=== PATIENT | female | born 1955 | race Two or more races ===

== ENCOUNTER 2018-03-06 15:42 | Inpatient (IN) | payer OTHER ==
[2018-03-06] MEDS ORDERED: HYZAAR 100-251 EACH (16:03)
[2018-03-06] MEDS ORDERED: TOPROL XL25 MG (16:03)
[2018-03-06] MEDS ORDERED: LIPITOR40 MG (16:03)
[2018-03-06] MEDS ORDERED: OMEGA 3-6-9 CO400 MG (16:04)
[2018-03-06] MEDS ORDERED: CONZIP100 MG (16:04)
[2018-03-07] MEDS ORDERED: RELAFEN PO (07:40)
[2018-03-07] MEDS ORDERED: MULTIVITAMINS1 EAC9 PO (07:41)
[2018-04-11] MEDS ORDERED: COLACE100 MG PO (18:20)
[2018-04-11] MEDS ORDERED: NEURONTIN800 MG PO (18:20)
[2018-04-11] MEDS ORDERED: AMOX-CLAV 875-1 EACH PO (18:21)
[2018-04-11] MEDS ORDERED: CLONAZEPAM1 MG PO (18:21)
[2018-04-11] MEDS ORDERED: PERCOCET 5-3251 EACH PO (18:21)
== END 2018-04-12 16:09 | disposition home or self-care (01) | DRG 455 ==
LOC: SURH 03-14 10:00 → O/R 04-11 08:11 → SURH 04-11 08:11
PROVIDERS: ADMIT Orthopaedic Surgery Orthopaedic Surgery of the Spine
PROC: 0SG1071 Fusion of 2 or more Lumbar Vertebral Joints with Autologous Tissue Substitute, Posterior Approach, Posterior Column, Open Approach (ICD-10-PCS; 2018-04-11)
PROC: 0SG10AJ Fusion of 2 or more Lumbar Vertebral Joints with Interbody Fusion Device, Posterior Approach, Anterior Column, Open Approach (ICD-10-PCS; 2018-04-11)
PROC: 0ST20ZZ Resection of Lumbar Vertebral Disc, Open Approach (ICD-10-PCS; 2018-04-11)
PROC: 07DS3ZZ Extraction of Vertebral Bone Marrow, Percutaneous Approach (ICD-10-PCS; 2018-04-11)
PROC: 0SG10A0 Fusion of 2 or more Lumbar Vertebral Joints with Interbody Fusion Device, Anterior Approach, Anterior Column, Open Approach (ICD-10-PCS; principal; 2018-04-11 12:30)
PROC: 4A12X4Z Monitoring of Cardiac Electrical Activity, External Approach (ICD-10-PCS; 2018-04-12)
DX: M48.062 Spinal stenosis, lumbar region with neurogenic claudication (principal); M41.86 Other forms of scoliosis, lumbar region; M51.16 Intervertebral disc disorders with radiculopathy, lumbar region; I10 Essential (primary) hypertension; E66.01 Morbid (severe) obesity due to excess calories; E78.00 Pure hypercholesterolemia, unspecified

== ENCOUNTER 2021-09-13 08:37 | Outpatient (CLI) | payer OTHER ==
[~2021-09-13 08:37] MED LIST: AMOX-CLAV 875-1 EACH PO; CLONAZEPAM1 MG PO; COLACE100 MG PO; CONZIP100 MG; HYZAAR 100-251 EACH; LIPITOR40 MG; MULTIVITAMINS1 EAC9 PO; NEURONTIN800 MG PO; OMEGA 3-6-9 CO400 MG; PERCOCET 5-3251 EACH PO; RELAFEN PO; TOPROL XL25 MG
== END 2021-09-13 08:38 | disposition home or self-care (01) ==
LOC: NUCLEAR 08:37
PROVIDERS: ATTEND Specialist
DX: I73.9 Peripheral vascular disease, unspecified (principal)

== ENCOUNTER 2021-09-14 07:27 | Outpatient (CLI) | payer OTHER | END 2021-09-14 07:28 | disposition home or self-care (01) | LOC: NUCLEAR 07:27 | PROVIDERS: ATTEND Specialist | DX: I87.2 Venous insufficiency (chronic) (peripheral) (principal) ==